=== PATIENT | female | born 1960 | race Caucasian/White ===

== ENCOUNTER → 2017-06-15 | Outpatient (CLI) | payer BC ==
[~2017-06-15] MED LIST: AMARYL4 MG PO; ASPIRIN EC81 MG PO; GLUCOPHAGE XR750 M1 PO; LEVOTHROID (S100 MCG PO; LIPITOR10 MG PO; MULTIVITAMINS1 EAC2 PO; NORCO 5-325 TA1 EACH PO; PRINIVIL (ZESTR20 MG PO; TOPROL XL200 MG PO; TYLENOL EXTRA500 MG PO
== END | disposition disaster alternative care site (69) ==
LOC: GRAD 06-09 16:00
DX: K86.1 Other chronic pancreatitis (principal); K80.20 Calculus of gallbladder without cholecystitis without obstruction